=== PATIENT | female | born 1985 ===

== ENCOUNTER 2017-05-13 07:46 | Emergency (ER) | payer MEDICAID, OTHER ==
[2017-05-13] MEDS ORDERED: Sodium Chloride 0.9% 1,000 ML IV STA (08:27)
[2017-05-13 09:10] LABS: BASO # 0.02 K/mm3 (0.0-2.0); BASO % 0.4 % (0.0-3.0); EOS # 0.1 (0.0-0.7); EOS % 0.9 % (1.5-5.0); GRAN # 3.82 (1.4-6.5); GRAN % 71.2 % (50.0-68.0); HEMOGLOBIN 12.6 g/dL (12.0-16.0); LYMPH # 0.8 (1.2-3.4); LYMPH % 14.6 % (22.0-35.0); MEAN CELL VOLUME 89.3 fl (80.0-105.0); MEAN CORPUSCULAR HEMOGLOBIN 28.6 pg (25.0-35.0); MEAN CORPUSCULAR HGB CONC 32.1 g/dl (31.0-37.0); MEAN PLATELET VOLUME 10.6 fl (7.0-11.0); MONO # 0.7 (0.1-0.6); MONO % 12.9 % (1.0-6.0); RBC 4.4 10^6/uL (3.5-6.1); RED CELL DISTRIBUTION WIDTH 12.6 % (11.5-14.5); WHITE BLOOD COUNT 5.4 10^3/ul (4.5-11.0)
[2017-05-13 09:11] LABS: URINE BILIRUBIN NEGATIVE (NEGATIVE); URINE BLOOD NEGATIVE (NEGATIVE); URINE GLUCOSE (UA) NEGATIVE (NEGATIVE); URINE LEUKOCYTE ESTERASE TRACE Leu/uL (NEGATIVE); URINE NITRATE NEGATIVE (NEGATIVE); URINE PROTEIN NEGATIVE mg/dL (<30 mg/dL); URINE UROBILINOGEN 0.2 E.U./dL (<1 E.U./dL)
[2017-05-13 09:13] LABS: HCG,QUALITATIVE URINE NEGATIVE (NEGATIVE)
[2017-05-13 09:15] LABS: URINE APPEARANCE CLEAR (CLEAR); URINE COLOR YELLOW (YELLOW)
[2017-05-13 09:20] LABS: BLOOD UREA NITROGEN 10 mg/dL (7-21); CALCIUM 9.5 mg/dL (8.4-10.5); GFR AFRICAN-AMERICAN > 60; GFR NON-AFRICAN AMERICAN > 60
[2017-05-13 09:23] LABS: URINE AMORPHOUS SEDIMENT FEW; URINE BACTERIA MANY (NEG); URINE RBC 0 - 2 /hpf (0-2)
[2017-05-13 09:52] VITALS: O2SAT 100
--- NOTE | 2017-05-13 10:12 | ED PDOC ---
Arrival/HPI - General Chief Complaint: Headache Time Seen by Provider: 05/13/17 08:26 Historian: Patient - History of Present Illness Narrative History of Present Illness (Text): 05/13/17 10:09 pt p/w + 2 days onset of not feeling well, worsening general malaise/weakness, easily fatigued; pt states + felt warm/chills yesterday, + general headaches; pt took only nyquil yesterday for her malaise and suspected fever without much relief; pt states no sweats, no appetite, no cp/sob, + dry cough, no abd pain, no n/v, no numbness/tingling, no urinary/bowel changes, no fall/trauma/travel; + sick contact; pt denied loc, + feeling lightheaded today, no vision changes, mild light sensitive today; pt denied other complaints; pt is here for further eval. Time/Duration: < week (2 days) Symptom Onset: Gradual Symptom Course: Worsening Quality: Aching, Cramping, Throbbing Severity Level: 8, Severe Activities at Onset: Rest Context: Home Past Medical History - Provider Review Nursing Documentation Reviewed: Yes - Travel History Have you recently traveled outside [place] w/in the past 3 mons?: No - Past History Past History: No Previous - Infectious Disease Hx of Infectious Diseases: None - Reproductive Menopause: No - Psychiatric Hx Substance Use: No - Anesthesia Hx Anesthesia: No Family/Social History - Physician Review Nursing Documentation Reviewed: Yes Family/Social History: No Known Family HX Smoking Status: Unknown If Ever Smoked Hx Alcohol Use: No Hx Substance Use: No Hx Substance Use Treatment: No Allergies/Home Meds Allergies/Adverse Reactions: Allergies No Known Allergies Allergy (Verified 05/13/17 08:03) Review of Systems - Review of Systems Constitutional: Fatigue, Fevers Eyes: Normal ENT: Normal Respiratory: Cough Cardiovascular: Normal Gastrointestinal: Normal Genitourinary Female: Normal Musculoskeletal: Back Pain, Myalgias Skin: Normal Neurological: Headache, Dizziness Endocrine: Normal Hemo/Lymphatic: Normal Psychiatric: Normal Physical Exam Vital Signs Reviewed: Yes Vital Signs Temp Pulse Resp BP Pulse Ox 05/13/17 11:00 95 H 17 109/60 100 05/13/17 09:10 99.5 F 101 H 16 105/55 L 100 05/13/17 07:59 102.6 F H 124 H 20 102/56 L 98 Temperature: Febrile Blood Pressure: Hypotensive Pulse: Tachycardic Respiratory Rate: Normal Appearance: Positive for: Well-Appearing, Other (uncomfortable, resting in bed, alert/awake, mild distress due to general pain; follows commands with ease, GCS = 15, oriented x 3) Pain Distress: Mild Mental Status: Positive for: Alert and Oriented X 3 - Systems Exam Head: Present: Atraumatic, Normocephalic Pupils: Present: PERRL, Other (visual field intact b/l, no gross photophobia, sclera anicteric) Extroacular Muscles: Present: EOMI Conjunctiva: Present: Normal Ears: Present: Normal Mouth: Present: Moist Mucous Membranes, Normal Teeth, Other (no drooling/stridor , no exudate/lesions, uvula/tongue are midline) Pharnyx: Present: Normal Nose (External): Present: Atraumatic Nose (Internal): Present: Normal Inspection Neck: Present: Normal Range of Motion Respiratory/Chest: Present: Clear to Auscultation, Good Air Exchange, Other (no accessory muscle use, no tachypenia, no w/r/r). No: Wheezes Cardiovascular: Present: Normal S1, S2, Other (+S1, +S2, + tachycardia, no murmur) Abdomen: Present: Other (well nourished female, no focal tenderness, no oneil' s sign, no mcburney's point tenderness, no masses/rebound/guarding/rigidity) Back: Present: Normal Inspection. No: Midline Tenderness Upper Extremity: Present: Normal Inspection, Normal ROM, NORMAL PULSES, Neurovascularly Intact, Capillary Refill < 2s Lower Extremity: Present: Normal Inspection, NORMAL PULSES, Normal ROM, Neurovascularly Intact, Capillary Refill < 2 s. No: Tenderness, Swelling Neurological: Present: GCS=15, CN II-XII Intact, Speech Normal Skin: Present: Warm, Normal Color, Other (cap < 1 sec, no ulcerations, no petechiae) Psychiatric: Present: Alert, Oriented x 3, Normal Insight, Normal Concentration Medical Decision Making ED Course and Treatment: 05/13/17 10:15 Impression: fever, headaches, general malaise, r/o flu i have consider all the differential diagnosis regarding pt's chief medical complaints/clinical findings, including but are not limited to: r/o flu, dehydration A/P: fever, headaches - labs - rapid flu - observe - iv - supportive care 05/13/2017 11:32 Patient is feeling improved. Patient will try PO trial and may be able to discharge home. 05/13/17 12:08 pt tolerated po well pt is comfortable 05/13/17 12:24 pt is comfortable vital signs stabilized pt is made aware of her medical results pt is encouraged fluids pt will f/u as directed pt will be discharged home 05/13/17 12:47 Re-evaluation Time: 11:45 Reassessment Condition: Improving,but remains with symptoms - Lab Interpretations Lab Results: 05/13/17 08:30 05/13/17 08:30 Lab Results 05/13/17 08:30: Sodium 141, Potassium 3.9, Chloride 103, Carbon Dioxide 28, Anion Gap 14, BUN 10, Creatinine 0.7, Est GFR ( Amer) > 60, Est GFR (Non- Af Amer) > 60, Random Glucose 93, Calcium 9.5 05/13/17 08:30: Influenza Typ A,B (EIA) Negative for flu a/b 05/13/17 08:30: Urine Color Yellow, Urine Appearance Clear, Urine pH 7.0, Ur Specific [place] 1.015, Urine Protein Negative, Urine Glucose (UA) Negative, Urine Ketones Negative, Urine Blood Negative, Urine Nitrate Negative, Urine Bilirubin Negative, Urine Urobilinogen 0.2, Ur Leukocyte Esterase Trace H, Urine RBC 0 - 2, Urine WBC 5 - 10, Ur Epithelial Cells 6 - 8, Amorphous Sediment Few, Urine Bacteria Many, Urine Other Uyeast, Urine HCG, Qual Negative 05/13/17 08:30: WBC 5.4, RBC 4.40, Hgb 12.6, Hct 39.3, MCV 89.3, MCH 28.6, MCHC 32.1, RDW 12.6, Plt Count 246, MPV 10.6, Gran % 71.2 H, Lymph % (Auto) 14.6 L, [place] % (Auto) 12.9 H, Eos % (Auto) 0.9 L, Baso % (Auto) 0.4, Gran # 3.82, Lymph # 0.8 L, [place] # 0.7 H, Eos # 0.1, Baso # 0.02 I have reviewed the lab results: Yes Interpretation: All labs normal - Medication Orders Current Medication Orders: Discontinued Medications Acetaminophen (Tylenol 325mg Tab) 975 mg PO STAT STA Stop: 05/13/17 10:19 Sodium Chloride (Sodium Chloride 0.9%) 1,000 mls @ 999 mls/hr IV .Q1H1M STA Stop: 05/13/17 09:27 Last Admin: 05/13/17 08:49 Dose: 999 mls/hr eMAR Start Stop Document 05/13/17 08:49 EVE (Rec: 05/13/17 08:49 EVE [email or web address]) Intravenous Solution Start Date 05/13/17 Start Time 08:49 End Date 05/13/17 End time 09:49 Total Infusion Time 60 Ketorolac Tromethamine (Toradol) 30 mg IVP STAT STA Stop: 05/13/17 08:30 Last Admin: 05/13/17 08:47 Dose: 30 mg MAR Pain Assessment Document 05/13/17 08:47 EVE (Rec: 05/13/17 08:47 EVE MOORE) Pain Reassessment Is this a pain reassessment? No Sleep Is patient sleeping during reassessment? No Presence of Pain Presence of Pain Yes IVP Administration Document 05/13/17 08:47 EVE (Rec: 05/13/17 08:47 EVE MOORE) Charges for Administration # of IVP Administrations 1 Oseltamivir Phosphate (Tamiflu Cap) 75 mg PO ONCE ONE PRN Reason: Protocol Stop: 05/13/17 08:29 Last Admin: 05/13/17 08:48 Dose: 75 mg Disposition/Present on Arrival - Present on Arrival Any Indicators Present on Arrival: No History of DVT/PE: No History of Uncontrolled Diabetes: No Urinary Catheter: No History of Decub. Ulcer: No History Surgical Site Infection Following: None - Disposition Have Diagnosis and Disposition been Completed?: Yes Diagnosis: Acute viral syndrome, Dehydration Disposition: HOME/ ROUTINE Disposition Time: 12:42 Patient Plan: Discharge Patient Problems: Current Active Problems Problem Status Onset Acute viral syndrome Acute Dehydration Acute Condition: GOOD Discharge Instructions (ExitCare): Dehydration (ED), Viral Syndrome (ED) Print Language: BOLIVIAN Additional Instructions: Make sure to see your doctor in 1-2 days DRINK PLENTY OF FLUIDS take your medications as prescribed RETURN TO ED IF worse pain, cant breath, persistent vomiting, high fever >101- 102 for hours, altered behavior, unable to urinate, heavy/persistent bleeding, passing out, chest pain, or other medical emergencies Prescriptions: Ibuprofen [Motrin] 400 mg PO QID #30 tab Oseltamivir Phosphate [Tamiflu] 75 mg PO BID #9 capsule Referrals: David Cano MD [Primary Care Provider] - Follow up with primary Forms: [facility] ([facility]), WORK NOTE
[2017-05-13 12:42] VITALS: RESP 17
[2017-05-13 12:52] VITALS: BP 108/62; PULSE 72
[2017-05-13 12:57] VITALS: TEMP 99.3
== END 2017-05-13 12:52 | disposition home or self-care (01) ==
LOC: ED 07:46
DX: B34.9 Viral infection, unspecified (principal); E86.0 Dehydration
CPT/HCPCS: 80048; 81001; 84703; 85025; 87086; 87804; 96361; 96374; 99285; J1885; J7040